=== PATIENT | male | born 1990 | race Caucasian/White ===

== ENCOUNTER 2017-01-03 20:23 | Emergency (ER) | payer OTHER ==
[~2017-01-03] VITALS: Ht 170.2 cm; Wt 67.5 kg
[2017-01-03 20:49] VITALS: Ht 170.2 cm; Wt 67.5 kg
[2017-01-04 00:16] LABS: CHLORIDE 102 mmol/L (97-110); POTASSIUM 3.9 mmol/L (3.5-5.1); SODIUM 143 mmol/L (135-144)
[2017-01-04 00:18] LABS: ANION GAP 15 (8-16); ASPARTATE AMINO TRANSFERASE 31 IU/L (15-46); BILIRUBIN,INDIRECT 0.9 mg/dl (0-1.1); BILIRUBIN,TOTAL 0.9 mg/dl (0.2-1.3); CARBON DIOXIDE 30 mmol/L (21-31); CREATININE 0.78 mg/dl (0.61-1.24)
[2017-01-04 00:19] LABS: ALANINE AMINOTRANSFERASE 29 IU/L (13-69); ALBUMIN/GLOBULIN RATIO 1.53; ALKALINE PHOSPHATASE 62 IU/L (42-121); BLOOD UREA NITROGEN 14 mg/dl (7-20); GLUCOSE 80 mg/dl (70-220); TOTAL PROTEIN 6.6 g/dl (6.1-8.1)
[2017-01-04 00:21] LABS: ACETAMINOPHEN < 10.0 ug/ml (10.0-30.0); ETHANOL < 10.0 mg/dl; SALICYLATE < 1.0 mg/dl (5.0-30.0)
[2017-01-04 00:28] LABS: BASOPHILS % 0.3 % (0.0-2.0); EOSINOPHILS # 0.3 10^3/ul (0.0-0.5); EOSINOPHILS % 2.9 % (0.0-7.0); HEMATOCRIT 41.9 % (42.0-52.0); HEMOGLOBIN 14.3 g/dl (14.0-18.0); LYMPHOCYTES # 1.8 10^3/ul (0.8-2.9); LYMPHOCYTES % 18.7 % (15.0-51.0); MEAN CORPUSCULAR HGB CONC 34.2 g/dl (32.0-37.0); MEAN CORPUSCULAR VOLUME 90.5 fl (82.0-101.0); MEAN PLATELET VOLUME 8.8 fl (7.4-10.4); MONOCYTE # 0.9 10^3/ul (0.3-0.9); MONOCYTES % 9.2 % (0.0-11.0); NEUTROPHIL # 6.6 10^3/ul (1.6-7.5); NEUTROPHILS % 68.9 % (39.0-77.0); PLATELET COUNT 256 10^3/UL (140-440); RED BLOOD COUNT 4.63 10^6/ul (4.70-6.10); RED CELL DISTRIBUTION WIDTH 13.7 % (11.5-14.5); UNCORRECTED WBC 9.6 10^3/ul (4.8-10.8); WHITE BLOOD COUNT 9.6 10^3/ul (4.8-10.8)
[2017-01-04 00:29] LABS: CONDITION 1
[2017-01-04 00:51] LABS: ADD UMIC NO; URINE BILIRUBIN (Dip) NEGATIVE (NEGATIVE); URINE BLOOD (Dip) NEGATIVE (NEGATIVE); URINE COLOR LT. YELLOW (YELLOW); URINE GLUCOSE (Dip) NEGATIVE (NEGATIVE); URINE KETONES (Dip) NEGATIVE (NEGATIVE); URINE LEUKOCYTE ESTERASE (Dip) NEGATIVE (NEGATIVE); URINE NITRITE (Dip) NEGATIVE (NEGATIVE); URINE TOTAL PROTEIN (Dip) NEGATIVE (NEGATIVE); URINE UROBILINOGEN (Dip) 0.2 E.U./dL (0.1-1.0)
[2017-01-04 01:06] LABS: BARBITURATES Negative (NEGATIVE); BENZODIAZEPINES Negative (NEGATIVE); CANNABINOIDS Negative (NEGATIVE); COCAINE Negative (NEGATIVE); OPIATES Negative (NEGATIVE)
--- NOTE | 2017-01-04 02:16 | ERA ---
ER Documentation Chief Complaint Date/Time DATE: 01/04/17 TIME: 02:14 Chief Complaint requesting psychiatric evaluation, "i am lost". denies si/hi HPI This is a 26-year-old male presents to the emergency room for evaluation because he states "I feel like I am in a dream". The patient does state he has a history of bipolar depression and is supposed to take Ativan and Haldol. He says Haldol makes his muscles tighten up so he has not taken it. The patient came to the ER for evaluation. ROS All systems reviewed and are negative except as per history of present illness. Allergies Allergies: Coded Allergies: No Known Allergy (Unverified , 01/03/17) PMhx/Soc Medical and Surgical Hx: pt denies Medical Hx, pt denies Surgical Hx History of Surgery: No Anesthesia Reaction: No Hx Neurological Disorder: No Hx Respiratory Disorders: No Hx Cardiac Disorders: No Hx Psychiatric Problems: Yes (ANXIETY) Hx Miscellaneous Medical Probl: No Hx Alcohol Use: No Hx Substance Use: No Hx Tobacco Use: No Smoking Status: Never smoker Physical Exam Vitals Vital Signs Date Time Temp Pulse Resp B/P Pulse Ox O2 Delivery O2 Flow Rate FiO2 01/03/17 20:49 97.3 88 20 136/76 98 Physical Exam Const: No acute distress Head: Atraumatic Eyes: Normal Conjunctiva ENT: Normal External Ears, Nose and Mouth. Neck: Full range of motion..~ No meningismus. Resp: Clear to auscultation bilaterally Cardio: Regular rate and rhythm, no murmurs Abd: Soft, non tender, non distended. Normal bowel sounds Skin: No petechiae or rashes Back: No midline or flank tenderness Ext: No cyanosis, or edema Neur: Awake and alert Psych: Flat affect Result Diagram: 01/03/17 2340 01/03/17 2340 Results 24 hrs Laboratory Tests Test 01/03/17 23:00 01/03/17 23:40 Urine Amphetamines Screen Negative Urine Barbiturates Negative Urine Benzodiazepines Screen Negative Urine Bilirubin NEGATIVE Urine Cannabinoids Negative Urine Clarity CLEAR Urine Cocaine Screen Negative Urine Color LT. YELLOW Urine Glucose NEGATIVE% Urine Hemoglobin NEGATIVE Urine Ketones NEGATIVE Urine Leukocyte Esterase NEGATIVE Urine Nitrite NEGATIVE Urine Opiates Screen Negative Urine Specific Turner 1.010 Urine Total Protein NEGATIVE Urine Urobilinogen 0.2 E.U./dL Urine pH 6.0 Acetaminophen Level < 10.0ug/ml Alanine Aminotransferase (ALT/SGPT) 29IU/L Albumin 4.0g/dl Albumin/Globulin Ratio 1.53 Alkaline Phosphatase 62IU/L Anion Gap 15 Aspartate Amino Transf (AST/SGOT) 31IU/L Basophils # 0.010^3/ul Basophils % 0.3% Blood Urea Nitrogen 14mg/dl Calcium Level 9.0mg/dl Carbon Dioxide Level 30mmol/L Chloride Level 102mmol/L Creatinine 0.78mg/dl Direct Bilirubin 0.00mg/dl Eosinophils # 0.310^3/ul Eosinophils % 2.9% Ethyl Alcohol Level < 10.0mg/dl Globulin 2.60g/dl Glucose Level 80mg/dl Hematocrit 41.9% Hemoglobin 14.3g/dl Indirect Bilirubin 0.9mg/dl Lymphocytes # 1.810^3/ul Lymphocytes % 18.7% Mean Corpuscular Hemoglobin 31.0pg Mean Corpuscular Hemoglobin Concent 34.2g/dl Mean Corpuscular Volume 90.5fl Mean Platelet Volume 8.8fl Monocytes # 0.910^3/ul Monocytes % 9.2% Neutrophils # 6.610^3/ul Neutrophils % 68.9% Nucleated Red Blood Cells # 0.010^3/ul Nucleated Red Blood Cells % 0.0/100WBC Platelet Count 99154^3/UL Potassium Level 3.9mmol/L Red Blood Count 4.6310^6/ul Red Cell Distribution Width 13.7% Salicylates Level < 1.0mg/dl Sodium Level 143mmol/L Total Bilirubin 0.9mg/dl Total Protein 6.6g/dl White Blood Count 9.610^3/ul Procedures/MDM This 26-year-old male presents to the ER for evaluation of altered mental status. When I evaluated him he did have a flat affect. He is not been taking medications even though he has a history of bipolar depression. The patient was medically cleared and was seen by our tele-psych physician who recommends a 5150 hold. The patient will be placed on hold at this time. Patient presents with symptomatology consistent with the decompensation of previously diagnosed psychiatric disease. Based on history, physical exam and appropriate lab tests , I appreciate no evidence of significant life-threatening injury or illness that includes a psychiatric hospitalization. Patient is thus "medically clear" for psychiatric admission. In regards to the psychiatric complaints, this patient has clear evidence of high risk psychiatric symptoms with significant risk for decompensation, thus requiring admission to the hospital for stabilization. Departure Diagnosis: Primary Impression: Bipolar depression Additional Impression: Psychological disorder Condition: URSULA Covarrubias DO Jan 04, 2017 02:16
[2017-01-04] MEDS ORDERED: LORAZEPAM 1 MG TAB PO ONE (02:30)
[2017-01-04] MEDS ORDERED: OLANZAPINE 5 MG TAB PO ONE (02:30)
--- NOTE | 2017-01-04 02:48 | PSY ---
Date/Time of Note Date/Time of Note DATE: 01/04/17 TIME: 02:30 Psychiatric Subjective Eval Consent Pt consented to telemedicine: Yes Subjective Evaluation Patient location: emergency Chief Complaint: requesting psychiatric evaluation, "i am lost". denies si/hi Reason for consult: suicidal History of present illness patient is a 26 yo male with PPH Of bipolar do and anxiety do who came to the ER due to worsening depression and now feeling suicidal because of worsening confusion. Patient states that for the past few days he has been feeling more and more confused, disorganized and paranoid that he does not want to live anymore, but denies any specific suicidal plan. He states that he has been off his medication haldol and ativan for about 2 weeks but does not like haldol because he has EPS side effect, muscle stiffness. He denies any HI, denies any drug or alcohol use, he has not been able to sleep for few days, no energy, no interest in life, he has not been feeling himself, and wants to rest in the hospital because he is worried about what he might do to himself in that state of mind. Past psychiatric history several past admission , last was about 7 months ago Hospitalization: yes Family History denies Medical history Problems Medical Problems: (1) Bipolar depression Status: Acute (2) Psychological disorder Status: Acute Allergies: Coded Allergies: No Known Allergy (Unverified , 01/03/17) Substance Abuse Substance use: No known substance abuse Social History Marital status: single Level of education: hs DPA/Conservatorship: No Occupation/Residential: unemployed Psychiatric Objective Eval Review of Systems: Review of Systems: Not Applicable Physical Examination: Physical Examination: Applicable Sleep: Insomnia Appetite: Decreased Energy: Decreased Interest: Decreased Mental Status Examination: Appearance: Disheveled Eye Contact: Fair Psychomotor Activity: Slow Behavior: Cooperative Speech: Clear AFFECT: Depressed Mood: Depressed Though Process: Linear Thought Content: Delusions Suicidal: Yes Homicidal: No On 72 hour hold: No Orientation: x2 Insight: Impared Judgement: Impared Attention Span: Distractible Laboratory Results Laboratory Tests Test 01/03/17 23:00 01/03/17 23:40 Urine Amphetamines Screen Negative Urine Barbiturates Negative Urine Benzodiazepines Screen Negative Urine Bilirubin NEGATIVE Urine Cannabinoids Negative Urine Clarity CLEAR Urine Cocaine Screen Negative Urine Color LT. YELLOW Urine Glucose NEGATIVE% Urine Hemoglobin NEGATIVE Urine Ketones NEGATIVE Urine Leukocyte Esterase NEGATIVE Urine Nitrite NEGATIVE Urine Opiates Screen Negative Urine Specific Thayer 1.010 Urine Total Protein NEGATIVE Urine Urobilinogen 0.2 E.U./dL Urine pH 6.0 Acetaminophen Level < 10.0ug/ml Alanine Aminotransferase (ALT/SGPT) 29IU/L Albumin 4.0g/dl Albumin/Globulin Ratio 1.53 Alkaline Phosphatase 62IU/L Anion Gap 15 Aspartate Amino Transf (AST/SGOT) 31IU/L Basophils # 0.010^3/ul Basophils % 0.3% Blood Urea Nitrogen 14mg/dl Calcium Level 9.0mg/dl Carbon Dioxide Level 30mmol/L Chloride Level 102mmol/L Creatinine 0.78mg/dl Direct Bilirubin 0.00mg/dl Eosinophils # 0.310^3/ul Eosinophils % 2.9% Ethyl Alcohol Level < 10.0mg/dl Globulin 2.60g/dl Glucose Level 80mg/dl Hematocrit 41.9% Hemoglobin 14.3g/dl Indirect Bilirubin 0.9mg/dl Lymphocytes # 1.810^3/ul Lymphocytes % 18.7% Mean Corpuscular Hemoglobin 31.0pg Mean Corpuscular Hemoglobin Concent 34.2g/dl Mean Corpuscular Volume 90.5fl Mean Platelet Volume 8.8fl Monocytes # 0.910^3/ul Monocytes % 9.2% Neutrophils # 6.610^3/ul Neutrophils % 68.9% Nucleated Red Blood Cells # 0.010^3/ul Nucleated Red Blood Cells % 0.0/100WBC Platelet Count 12846^3/UL Potassium Level 3.9mmol/L Red Blood Count 4.6310^6/ul Red Cell Distribution Width 13.7% Salicylates Level < 1.0mg/dl Sodium Level 143mmol/L Total Bilirubin 0.9mg/dl Total Protein 6.6g/dl White Blood Count 9.610^3/ul Assessment and Plan Assessment/Diagnosis Jupiter I: bipolar do nos anxiety do nos Jupiter II: deferred Jupiter III: as per record Jupiter IV: homeless Jupiter V: gaf 25 Recommendation/Plan Medication Management please give patient zyprexa 10 mg po bid first dose stat with ativan 1 mg po bid first dose stat for psychosis Follow-up/Disposition Please admit patient on unvoluntary status due to Danger to self, In my opinion, patient currently MEETS criterion for inpatient care and CANNOT be safely treated at a lower level of care today as evidenced by the following risk factors: Current and Recent Suicidal Ideation Previous suicide attempt Intense feelings of hopelessness and lack of future orientation. Significant recent DETERIORATION in function, behavior and thought processes Non-Compliance with Outpatient Treatment Patient has failed outpatient and requires further inpatient assessment Medication changes require observation unavailable at a lower level of care. 5150 Recommendation: [facility] GAVIN TOMPKINS MD Jan 04, 2017 02:40
[2017-01-04] MEDS ORDERED: ACETAMINOPHEN 500 MG TAB PO STA (05:48)
[2017-01-04] MEDS ORDERED: ACETAMINOPHEN 500 MG TAB ONE (05:49)
[2017-01-04 05:51] VITALS: BP 117/56; PULSE 105; RESP 18; TEMP 100.7
[2017-01-04] MEDS ORDERED: IBUPROFEN 800 MG TAB PO ONE (06:00)
== END 2017-01-04 06:59 ==
LOC: E/R 20:23
DX: F31.9 Bipolar disorder, unspecified (principal)
CPT/HCPCS: 36415; 80053; 80306; 80307; 81003; 85025